=== PATIENT | male | born 1995 | race Caucasian/White ===

== ENCOUNTER 2018-07-19 12:46 | Emergency (ER) | payer BC, MEDICAID ==
--- NOTE | 2018-07-19 14:55 | ED Physician Chart ---
ED Chief Complaint/HPI - Patient Information Date Seen:: 07/19/18 Time Seen:: 13:15 Chief Complaint:: l ankle pain athletic twisting pop sound History of Present Illness:: last night Allergies:: Allergies Allergy/AdvReac Type Severity Reaction Status Date / Time No Known Allergies Allergy Verified 07/19/18 13:04 Vitals:: Vital Signs - 8 hr 07/19/18 07/19/18 13:04 13:41 Temp 97.4 F 97.4 F HR 80 80 RR 16 16 BP 133/57 133/57 O2 Sat % 96 96 ED Review of Systems - Review of Systems General/Constitutional: No fever (no bleeding or immunosupressive irritatiom\n) ED Past Medical History - Past Medical History Past Medical History: No significant medical hx Family Medical History - Family Member Mother Living Status: Still Living Hx Family Diabetes: Yes ED Physical Exam - Physical Examination General/Constitutional: Well-developed, well-nourished, Non-toxic appearing, Ambulatory Head: Atraumatic Eyes: Lids, conjuctiva normal Skin: Nl inspection ENMT: External ears, nose nl Neck: Nontender Respiratory: Nl effort/Exclusion, Clear to Auscultation Cardio Vascular: RRR GI: No tenderness/rebounding/guarding Extremities: No tenderness or effusion (slight swelling from) ED Assessment - Assessment General Assessment: ankle sprain ED Septic Shock - . Is Septic Shock (SBP<90, OR Lactate>4 mmol\L) present?: No - <6hrs of presentation: Vital Signs: Vital Signs - 8 hr 07/19/18 07/19/18 13:04 13:41 Temp 97.4 F 97.4 F HR 80 80 RR 16 16 BP 133/57 133/57 O2 Sat % 96 96 ED Reassessment (Disposition) - Patient Disposition Discharge/Transfer:: Home (ice elevate splint applied persistent ortho consuly) Condition at Disposition:: Improved
== END 2018-07-19 14:10 | disposition home or self-care (01) ==
LOC: ER 12:46
DX: S93.402A Sprain of unspecified ligament of left ankle, initial encounter (principal); X50.1XXA Overexertion from prolonged static or awkward postures, initial encounter; Y93.89 Activity, other specified; Y92.89 Other specified places as the place of occurrence of the external cause; Y99.8 Other external cause status
CPT/HCPCS: Z7502